=== PATIENT | female | born 1995 | race Two or more races ===

== ENCOUNTER 2017-07-28 18:02 | Emergency (ER) | payer OTHER ==
[2017-07-28 18:20] VITALS: BP 116/63
--- NOTE | 2017-07-28 18:38 | ER Document Report ---
ED Medical Screen (RME) - General Chief Complaint: Vaginal Pain Stated Complaint: NAUSEA,VAGINAL PAIN, DISCOMFORT Time Seen by Provider: 07/28/17 18:31 Notes: This 21-year-old female patient complains of pelvic pain for the past few weeks. Last menstrual period was 2 weeks ago normal and on time. She does not describe any particular discharge. I have greeted and performed a rapid initial assessment of this patient. A comprehensive ED assessment and evaluation of the patient, analysis of test results and completion of the medical decision making process will be conducted by additional ED providers. TRAVEL OUTSIDE OF THE [place] IN LAST 30 DAYS: No - Related Data Allergies/Adverse Reactions: No Known Allergies Allergy (Unverified 07/28/17 18:28) Past Medical History - Social History Chew tobacco use (# tins/day): No Frequency of alcohol use: None Drug Abuse: None Renal/ Medical History: Denies: Hx Peritoneal Dialysis Physical Exam - Vital signs Vitals: Temp Pulse Resp BP Pulse Ox 98.3 F 86 18 116/63 99 07/28/17 18:18 07/28/17 18:18 07/28/17 18:18 07/28/17 18:18 07/28/17 18:18 Course - Vital Signs Vital signs: Temp Pulse Resp BP Pulse Ox 98.0 F 80 26 H 116/63 100 07/28/17 18:29 07/28/17 18:29 07/28/17 18:29 07/28/17 18:18 07/28/17 18:29
--- NOTE | 2017-07-28 19:02 | ER Document Report ---
HPI - HPI Patient complains to provider of: uti symptoms Onset: Other - 3 wks Onset/Duration: Persistent Quality of pain: Achy Pain Level: 3 Context: Patient presents complaining of dysuria for the past 3 weeks. Patient also reports pain with intercourse. Patient denies any vaginal bleeding or discharge. Associated Symptoms: Other - Dysuria, dyspareunia. denies: Fever Exacerbated by: Denies Relieved by: Denies Similar symptoms previously: No Recently seen / treated by doctor: No - ROS ROS below otherwise negative: Yes Systems Reviewed and Negative: Yes All other systems reviewed and negative - CONSTITUTIONAL Constitutional: DENIES: Fever - URINARY Urinary: REPORTS: Dysuria - MUSCULOSKELETAL Musculoskeletal: DENIES: Back Pain - DERM Skin Color: Normal Skin Problems: None Past Medical History - General Information source: Patient - Social History Smoking Status: Current Some Day Smoker Chew tobacco use (# tins/day): No Smoking Education Provided: Yes Frequency of alcohol use: None Drug Abuse: None Occupation: Active duty Family History: Reviewed & Not Pertinent Patient has suicidal ideation: No Patient has homicidal ideation: No - Medical History Medical History: Negative Renal/ Medical History: Denies: Hx Peritoneal Dialysis Surgical Hx: Negative Vertical Provider Document - CONSTITUTIONAL Agree With Documented VS: Yes Exam Limitations: No Limitations General Appearance: WD/WN, No Apparent Distress - INFECTION CONTROL TRAVEL OUTSIDE OF THE [place] IN LAST 30 DAYS: No - HEENT HEENT: Atraumatic, Normocephalic - NECK Neck: Normal Inspection, Supple - RESPIRATORY Respiratory: Breath Sounds Normal, No Respiratory Distress - CARDIOVASCULAR Cardiovascular: Regular Rate, Regular Rhythm - GI/ABDOMEN Gastrointestinal: Abdomen Soft, Abdomen Non-Tender, No Organomegaly - REPRODUCTIVE Female Genitalia: CMT. negative: Adnexal Pain-Right, Adnexal Pain-Left - BACK Back: Normal Inspection. negative: CVA Tenderness-Right, CVA Tenderness-Left - MUSCULOSKELETAL/EXTREMETIES Musculoskeletal/Extremeties: MAEW - NEURO Level of Consciousness: Awake, Alert, Appropriate Motor/Sensory: No Motor Deficit - DERM Integumentary: Warm, Dry, No Rash Course - Vital Signs Vital signs: Temp Pulse Resp BP Pulse Ox 98.0 F 80 26 H 116/63 100 07/28/17 18:29 07/28/17 18:29 07/28/17 18:29 07/28/17 18:18 07/28/17 18:29 Discharge - Discharge Clinical Impression: Vaginal candidiasis, PID (acute pelvic inflammatory disease) UTI (urinary tract infection) Qualifiers: Urinary tract infection type: site unspecified Hematuria presence: without hematuria Qualified Code(s): N39.0 - Urinary tract infection, site not specified Constipation Qualifiers: Constipation type: unspecified constipation type Qualified Code(s): K59.00 - Constipation, unspecified Condition: Stable Disposition: HOME, SELF-CARE Instructions: Doxycycline ([facility]), Pelvic Inflammatory Disease ([facility]), Rocephin ( [facility]), Urinary Tract Infection ([facility]), Vaginal Yeast Infection ([facility]) Additional Instructions: Return immediately for any new or worsening symptoms Followup with your primary care provider, call tomorrow to make a followup appointment Urine culture is pending, we will call if you need any different treatment Prescriptions: Doxycycline Hyclate 100 mg PO BID #20 capsule Phenazopyridine HCl [Pyridium 200 mg Tablet] 200 mg PO TID #15 tablet Polyethylene Glycol 3350 [Miralax] 17 gm PO DAILY PRN #119 powder PRN Reason: Forms: Smoking Cessation Education Referrals: [facility] [Provider Group] - Follow up as needed
[2017-07-28 19:10] LABS: APPEARANCE,URINE CLOUDY; BILIRUBIN,URINE NEGATIVE (NEGATIVE); COLOR,URINE YELLOW; GLUCOSE, URINE NEGATIVE (NEGATIVE); KETONES,URINE NEGATIVE (NEGATIVE); LEUKOCYTE ESTERASE,URINE LARGE (NEGATIVE); NITRITE,URINE NEGATIVE (NEGATIVE); PROTEIN,URINE 30 mg/dL (NEGATIVE); URINE SPECIFIC GRAVITY 1.023; UROBILINOGEN,URINE NEGATIVE mg/dL (<2.0)
[2017-07-28] MEDS ORDERED: CEFTRIAXONE INJ 1000 MG VIAL IM ONE (19:16)
[2017-07-28] MEDS ORDERED: LIDOCAINE 1% INJ-PF (10 MG/ML) 30 ML SDV INJ ONE (19:17)
[2017-07-28] MEDS ORDERED: DOXYCYCLINE HYCLATE 100 MG TABLET PO ONE (19:17)
[2017-07-28 19:29] LABS: BACTERIA (WET MOUNT) 3+ BACTERIA SEEN; T.VAGINALIS (WET MOUNT) NO TRICHOMONAS SEEN; WBCS (WET MOUNT) 1+ WBCS SEEN; YEAST (WET MOUNT) YEAST SEEN
[2017-07-28] MEDS ORDERED: FLUCONAZOLE 100 MG TABLET PO ONE (19:32)
[2017-07-28 20:29] LABS: CHLAM PCR DETECTED (NOT DETECT); GON PCR NOT DETECTED (NOT DETECT)
== END 2017-07-28 20:00 | disposition home or self-care (01) ==
LOC: ER 18:02
DX: N39.0 Urinary tract infection, site not specified (principal); B37.3 Candidiasis of vulva and vagina; N73.9 Female pelvic inflammatory disease, unspecified; K59.00 Constipation, unspecified; F17.200 Nicotine dependence, unspecified, uncomplicated
CPT/HCPCS: 99283; 96372; 87086; 87210; 81025; 87088; 81001; 87186; 87491; 87591; J3490; J0696

== ENCOUNTER 2019-05-04 12:13 | Emergency (ER) | payer OTHER ==
--- NOTE | 2019-05-04 12:33 | ER Document Report ---
ED Medical Screen (RME) - General Chief Complaint: Urinary Problem Stated Complaint: URINARY PROBLEM Time Seen by Provider: 05/04/19 12:28 Mode of Arrival: Ambulatory Information source: Patient Notes: Otherwise healthy 23-year-old female presenting to the emergency department chief complaint of dysuria, pelvic pain and whitish-yellow abnormal discharge. Patient reports recently treated for bacterial vaginosis, had swabs taken during her Pap smear. Patient reports she thinks she may have a yeast infection. Exam: Patient alert, oriented, answering all questions, no acute distress noted. Exam deferred until patient is in room I have greeted and performed a rapid initial assessment of this patient. A comprehensive ED assessment and evaluation of the patient, analysis of test results and completion of the medical decision making process will be conducted by additional ED providers. I have specifically instructed the patient or family members with the patient to immediately return to any nursing staff should anything change in the patient's condition or with their chief complaint. TRAVEL OUTSIDE OF THE [place] IN LAST 30 DAYS: No - Related Data Allergies/Adverse Reactions: No Known Allergies Allergy (Unverified 07/28/17 18:28) Home Medications: denies Past Medical History - Social History Chew tobacco use (# tins/day): No Frequency of alcohol use: Occasional Drug Abuse: None Renal/ Medical History: Denies: Hx Peritoneal Dialysis Physical Exam - Vital signs Vitals: Temp Pulse Resp BP Pulse Ox 97.7 F 61 16 116/66 100 05/04/19 12:22 05/04/19 12:22 05/04/19 12:22 05/04/19 12:22 05/04/19 12:22 Course - Vital Signs Vital signs: Temp Pulse Resp BP Pulse Ox 97.7 F 61 16 116/66 100 05/04/19 12:22 05/04/19 12:22 05/04/19 12:22 05/04/19 12:22 05/04/19 12:22
[2019-05-04 13:08] LABS: APPEARANCE,URINE SLIGHTLY-CLOUDY; BILIRUBIN,URINE NEGATIVE (NEGATIVE); COLOR,URINE YELLOW; GLUCOSE, URINE NEGATIVE (NEGATIVE); KETONES,URINE NEGATIVE (NEGATIVE); PROTEIN,URINE NEGATIVE (NEGATIVE); URINE SPECIFIC GRAVITY 1.014; UROBILINOGEN,URINE NEGATIVE mg/dL (<2.0)
[2019-05-04 13:14] LABS: BACTERIA (WET MOUNT) 4+ BACTERIA SEEN; EPITHELIALS (WET MOUNT) 4+ EPITHELIALS SEEN; RBCS (WET MOUNT) 1+ RBCS SEEN; T.VAGINALIS (WET MOUNT) NO TRICHOMONAS SEEN; WBCS (WET MOUNT) 4+ WBCS SEEN; YEAST (WET MOUNT) NO YEAST SEEN
--- NOTE | 2019-05-04 13:16 | ER Document Report ---
ED GI/ - General Chief Complaint: Urinary Problem Stated Complaint: URINARY PROBLEM Time Seen by Provider: 05/04/19 12:28 Mode of Arrival: Ambulatory Notes: Patient is a 23-year-old female who presents emergency department with a chief complaint of vaginal discharge. Patient reports on Monday she started to develop burning with urination. Patient denies pelvic pain or abdominal pain. Patient reports she has had a white to yellow vaginal discharge. Patient denies vaginal bleeding. Patient reports back in February she had a Pap smear and was treated for bacterial vaginosis. Patient reports that she did take Flagyl for 5 days but did not finish her full course. Patient reports her last menstrual cycle was April 02. Patient reports that she is taking Azo for her symptoms which did seem to help. 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 Patient reports while out in the field they were doing water exercises where she is soaked for long periods of time and does sweat a lot. Patient concern for possible yeast infection as well. Patient denies vaginal itching. Patient states that her is currently being seen for similar symptoms. Patient states there is no concern for sexually transmitted diseases. TRAVEL OUTSIDE OF THE [place] IN LAST 30 DAYS: No - Related Data Allergies/Adverse Reactions: No Known Allergies Allergy (Unverified 07/28/17 18:28) Home Medications: denies Past Medical History - General Information source: Patient Last Menstrual Period: 04/23/19 - Social History Smoking Status: Never Smoker Chew tobacco use (# tins/day): No Frequency of alcohol use: Occasional Drug Abuse: None Lives with: Spouse/Significant other Family History: Reviewed & Not Pertinent Patient has suicidal ideation: No Patient has homicidal ideation: No - Past Medical History Cardiac Medical History: Reports: None Pulmonary Medical History: Reports: None EENT Medical History: Reports: None Neurological Medical History: Reports: None Endocrine Medical History: Reports: None Renal/ Medical History: Reports: None. Denies: Hx Peritoneal Dialysis Malignancy Medical History: Reports: None GI Medical History: Reports: None Musculoskeletal Medical History: Reports None Skin Medical History: Reports None Psychiatric Medical History: Reports: None Traumatic Medical History: Reports: None Infectious Medical History: Reports: None Surgical Hx: Negative Review of Systems - Review of Systems Constitutional: No symptoms reported EENT: No symptoms reported Cardiovascular: No symptoms reported Respiratory: No symptoms reported Gastrointestinal: No symptoms reported Genitourinary: See HPI Female Genitourinary: See HPI Musculoskeletal: No symptoms reported Skin: No symptoms reported Hematologic/Lymphatic: No symptoms reported Neurological/Psychological: No symptoms reported Physical Exam - Vital signs Vitals: Temp Pulse Resp BP Pulse Ox 97.7 F 61 16 116/66 100 05/04/19 12:22 05/04/19 12:22 05/04/19 12:22 05/04/19 12:22 05/04/19 12:22 Interpretation: Normal - Notes Notes: GENERAL: Well-appearing, well-nourished and in no acute distress. HEAD: Atraumatic, normocephalic. EYES: Pupils equal round and reactive to light, extraocular movements intact, sclera anicteric, conjunctiva are normal. ENT: Nares patent, oropharynx clear without exudates. Moist mucous membranes. NECK: Normal range of motion, supple without lymphadenopathy or JVD. LUNGS: Breath sounds clear to auscultation bilaterally and equal. No wheezes rales or rhonchi. HEART: Regular rate and rhythm without murmurs, rubs or gallops. ABDOMEN: Soft, nontender, normoactive bowel sounds. No suprapubic pain. No guarding, no rebound. No masses appreciated. BACK: No cervical, thoracic, lumbar midline tenderness. No saddle anesthesia, normal distal neurovascular exam. NO CVA tenderness. GENITOURINARY: Deferred. EXTREMITIES: Normal range of motion, no pitting or edema. No clubbing or cyanosis. NEUROLOGICAL: Cranial nerves II through XII grossly intact. Normal speech, normal gait. PSYCH: Normal mood, normal affect. SKIN: Warm, Dry, normal turgor, no rashes or lesions noted. Course - Re-evaluation Re-evalutation: 05/04/19 13:15 Patient vital signs do not show significant tachycardia, hypotension or fever. Pelvic examination was performed and specimens pending. 05/04/19 13:56 Did discuss results of the pelvic examination with the patient. She has been diagnosed with bacterial vaginosis as well as a urinary tract infection. We will place the patient on Keflex. We will give first dose here in the emergency department. Urine culture has been sent. - Vital Signs Vital signs: Temp Pulse Resp BP Pulse Ox 97.7 F 61 16 116/66 100 05/04/19 12:22 05/04/19 12:22 05/04/19 12:22 05/04/19 12:22 05/04/19 12:22 - Laboratory Laboratory results interpreted by me: 05/04/19 12:34 Urine Blood MODERATE H Leukocyte Esterase Rfl LARGE H Patient does have a large amount of leukocytes in the urine and 135 WBCs. Negative hCG. Patient's pelvic specimens did show bacterial vaginosis. Laboratory 05/04/19 05/04/19 05/04/19 12:34 12:34 13:05 Urine Color YELLOW Urine Appearance SLIGHTLY-CLOUDY Urine pH 5.0 Ur Specific [place] 1.014 Urine Protein NEGATIVE Urine Glucose (UA) NEGATIVE Urine Ketones NEGATIVE Urine Blood MODERATE H Urine Nitrite (Reflex) NEGATIVE Urine Bilirubin NEGATIVE Urine Urobilinogen NEGATIVE Leukocyte Esterase Rfl LARGE H Urine RBC (Auto) 20 Urine Bacteria (Auto) TRACE Urine WBC (Reflex) 135 Squamous Epi Cells Auto 5 Urine Mucus (Auto) RARE Urine Ascorbic Acid NEGATIVE Urine HCG, Qual NEGATIVE Epi Cells (Wet Prep) 4+ EPITHELIALS SEEN Bacteria (Wet Prep) 4+ BACTERIA SEEN Trichomonas (Wet Prep) NO TRICHOMONAS SEEN Vaginal WBC 4+ WBCS SEEN Vaginal RBC 1+ RBCS SEEN Vaginal Yeast NO YEAST SEEN Procedures - Pelvic Exam Pelvic exam Time completed: 13:00 Cultures obtained: Yes Wet prep obtained: Yes Witnessed by: Eda PINTO Notes: 05/04/19 13:16 External genitalia was unremarkable without edema, erythema or lesions. No discharge noted externally. Patient tolerated the insertion of the speculum fairly well with minimal discomfort. I was able to visualize the cervix. There was a large amount of thick white discharge within the vaginal vault and around the cervix. There is also a large amount of white liquid discharge. No blood noted. Discharge - Discharge Clinical Impression: Bacterial vaginosis Urinary tract infection Qualifiers: Urinary tract infection type: acute cystitis Hematuria presence: with hematuria Qualified Code(s): N30.01 - Acute cystitis with hematuria Condition: Stable Disposition: HOME, SELF-CARE Instructions: Cephalexin ([facility]), Urinary Anesthetic Agent ([facility]), Urinary Tract Infection ([facility]), Urinary Tract Infection, Child ([facility]) Additional Instructions: *Today was seen in the emergency department for pain with urination and vaginal discharge. You are being diagnosed with bacterial vaginosis which we do use Flagyl to treat. Flagyl is an antibiotic in which you should take twice a day for 1 week. You are also being diagnosed with a urinary tract infection. Please make sure you are continuing to drink plenty of fluids and take both of your antibiotics as prescribed. The antibiotic we are using to treat your infection in the urine is Keflex. Please make sure that [place] Please return emergency department if you develop fever, inabi lity to urinate, flank pain, chills or ganesh blood in the urine. Vaginosis, Bacterial Your exam shows you have bacterial vaginosis. This condition is due to an overgrowth of bacteria in the vagina. Symptoms may include vaginal itching or pain, a smelly discharge, and sometimes burning with urination. Normally this is not transmitted by sexual contact. Vaginosis can be treated with oral or topical antibiotics. Metronidazole (Flagyl) pills are usually effective. Topical vaginal creams include Cleocin and Metro-Gel. You should avoid sexual contact until your symptoms are all better. Call the doctor if you develop pelvic pain, fever, or problems with urination, or if you don't improve as expected. URINARY TRACT INFECTION: Your evaluation indicates that you have a urinary tract infection. This is due to germs growing in the bladder. This is a common problem. This infection usually responds quickly to antibiotics. Your antibiotic sh ould be taken exactly as prescribed. Drink plenty of fluids -- three to four quarts a day. Occasionally, a bladder anesthetic will be prescribed to help stop the feeling of urgency until the antibiotic has a chance to clear the infection. This may cause your urine to be dark orange. Certain urine infections require a culture. If the doctor obtained a culture, the results will be back in two days. You should call to see if a change in treatment is needed. A repeat urinalysis after you finish treatment is often recommended. The physician will let you know if further testing is required. Call the doctor if you develop fever, chills, flank pain, inability to urinate, or blood in the urine. ANTIBIOTIC THERAPY: You have been given an antibiotic prescription. It's important that you take all the medication, unless instructed otherwise by your physician. Failure to complete the entire course can result in relapse of your condition. Common side effects of antibiotics include nausea, intestinal cramping, or diarrhea. Women may develop vaginal yeast infections, and babies can get yeast (thrush) in the mouth following the use of antibiotics. Contact your physician if you develop significant side effects from this medication. Allergy to this antibiotic can result in hives, wheezing, faintness, or itching. If symptoms of allergy occur, stop the medication and call the doctor. CEPHALEXIN: The antibiotic you've been prescribed is a member of the cephalosporin class. This type of antibiotic covers a wide variety of infections, including those of the skin, lungs, and urinary tract. It's useful for staph infections. This antibiotic is slightly similar to the penicillin family. In rare cases, a person who is allergic to penicillin will also be allergic to this medication. If you have had a severe allergic reaction to penicillin, and have not taken this antibiotic since that time, notify your doctor. Antibiotics which cover many germs ("broad spectrum" antibiotics) are more likely to cause diarrhea or "yeast" infections. Women prone to vaginal yeast problems may suffer an attack after taking this antibiotic. In infants, oral thrush (white spots "stuck" on the cheek) or yeast diaper rash may result. See your doctor if these problems occur. Call at once if you develop itching, hives, shortness of breath, or lightheadedness. URINARY ANESTHETIC AGENT: You have been given a medication (Pyridium) for urinary tract discomfort. This medicine numbs the lining of the bladder and urethra, resulting in less tammy n, burning, and urgency. You may take it as needed, according to instructions. When the symptoms resolve, you can stop this medication (be sure to continue any other medications the doctor has given you). This medicine turns the urine a dark orange. It may stain underwear. Occasionally, it can cause nausea. Return for evaluation if there are any unexpected effects, such as itching, hives, or shortness of breath. FOLLOW-UP CARE: If you have been referred to a physician for follow-up care, call the physicians office for an appointment as you were instructed or within the next two days. If you experience worsening or a significant change in your symptoms, notify the physician immediately or return to the Emergency Department at any time for re-evaluation. Prescriptions: Metronidazole [Flagyl 500 mg Tablet] 500 mg PO BID 7 Days #14 tablet Cephalexin Monohydrate [Keflex 500 mg Capsule] 500 mg PO BID 7 Days #14 capsule Phenazopyridine HCl [Pyridium 100 Mg Tablet] 100 mg PO TID 2 Days #6 tablet
[2019-05-04] MEDS ORDERED: CEPHALEXIN 500 MG CAPSULE PO ONE (13:42)
[2019-05-04 14:42] LABS: CHLAM PCR NOT DETECTED (NOT DETECT)
== END 2019-05-04 14:02 | disposition home or self-care (01) ==
LOC: ER 12:13
DX: N76.0 Acute vaginitis (principal); B96.89 Other specified bacterial agents as the cause of diseases classified elsewhere; N30.01 Acute cystitis with hematuria; R39.198 Other difficulties with micturition; R30.9 Painful micturition, unspecified
CPT/HCPCS: 81001; 81025; 87086; 87210; 87491; 87591; 99283

== ENCOUNTER 2019-07-25 20:17 | Emergency (ER) | payer OTHER ==
--- NOTE | 2019-07-25 21:01 | ER Document Report ---
ED Medical Screen (RME) - General Stated Complaint: ABDOMINAL PAIN Time Seen by Provider: 07/25/19 20:52 Mode of Arrival: Ambulatory Information source: Patient Notes: 23-year-old female history of BV presents to the emergency department with reports of possible repeat of BV. She reports vaginal discharge vaginal irritation some vaginal odor. Denies pain with void. Denies possible STD. She is sexually active no protection but reports she is . Also complains of vaginal bulge. Denies fever vomiting diarrhea. I have greeted and performed a rapid initial assessment of this patient. A comprehensive ED assessment and evaluation of the patient, analysis of test results and completion of the medical decision making process will be conducted by additional ED providers. TRAVEL OUTSIDE OF THE [place] IN LAST 30 DAYS: No - Related Data Allergies/Adverse Reactions: No Known Allergies Allergy (Unverified 07/28/17 18:28) Past Medical History Renal/ Medical History: Denies: Hx Peritoneal Dialysis Physical Exam - Vital signs Vitals: Temp Pulse Resp BP Pulse Ox 98.1 F 58 L 16 112/57 L 99 07/25/19 20:22 07/25/19 20:22 07/25/19 20:22 07/25/19 20:22 07/25/19 20:22 Course - Vital Signs Vital signs: Temp Pulse Resp BP Pulse Ox 98.1 F 58 L 16 112/57 L 99 07/25/19 20:22 07/25/19 20:22 07/25/19 20:22 07/25/19 20:22 07/25/19 20:22
[2019-07-25 22:30] LABS: APPEARANCE,URINE SLIGHTLY-CLOUDY; BILIRUBIN,URINE NEGATIVE (NEGATIVE); COLOR,URINE YELLOW; GLUCOSE, URINE NEGATIVE (NEGATIVE); KETONES,URINE NEGATIVE (NEGATIVE); LEUKOCYTE ESTERASE,URINE LARGE (NEGATIVE); NITRITE,URINE NEGATIVE (NEGATIVE); PROTEIN,URINE NEGATIVE (NEGATIVE); URINE SPECIFIC GRAVITY 1.018; UROBILINOGEN,URINE NEGATIVE mg/dL (<2.0)
--- NOTE | 2019-07-25 22:47 | ER Document Report ---
ED GI/ - General Chief Complaint: Pelvic Pain Stated Complaint: ABDOMINAL PAIN Time Seen by Provider: 07/25/19 20:52 Mode of Arrival: Ambulatory Information source: Patient Notes: 23-year-old female past medical history significant for recurrent BV and yeast presents to the emergency room complaining of vaginal discharge for the past 3 days. Also states she has had a lump in the vaginal area off and on for the past 2 weeks. She denies any vaginal bleeding. No change in sexual partners. Positive for chlamydia in 2018. TRAVEL OUTSIDE OF THE [place] IN LAST 30 DAYS: No - Related Data Allergies/Adverse Reactions: No Known Allergies Allergy (Unverified 07/28/17 18:28) Past Medical History - General Information source: Patient - Social History Smoking Status: Never Smoker Frequency of alcohol use: None Drug Abuse: None Lives with: Family Family History: Reviewed & Not Pertinent Patient has homicidal ideation: No - Medical History Medical History: Other - Bacterial vaginosis and yeast infections Renal/ Medical History: Denies: Hx Peritoneal Dialysis Review of Systems - Review of Systems Constitutional: No symptoms reported Cardiovascular: No symptoms reported Respiratory: No symptoms reported Gastrointestinal: No symptoms reported Genitourinary: denies: Dysuria Female Genitourinary: Vaginal discharge, Other - Lump in vaginal area. denies: , Vaginal bleeding Skin: No symptoms reported Neurological/Psychological: No symptoms reported -: Yes All other systems reviewed and negative Physical Exam - Vital signs Vitals: Temp Pulse Resp BP Pulse Ox 98.1 F 58 L 16 112/57 L 99 07/25/19 20:22 07/25/19 20:22 07/25/19 20:22 07/25/19 20:22 07/25/19 20:22 - General General appearance: Appears well, Alert In distress: Mild - HEENT Head: Normocephalic, Atraumatic Eyes: Normal Pupils: PERRL - Respiratory Respiratory status: No respiratory distress Chest status: Nontender Breath sounds: Normal Chest palpation: Normal - Cardiovascular Rhythm: Regular Heart sounds: Normal auscultation Murmur: No - Abdominal Inspection: Normal Distension: No distension Bowel sounds: Normal Tenderness: Nontender Organomegaly: No organomegaly - Genitourinary External exam: Normal. No: Lesions Speculum exam: Normal, Vaginal discharge - Moderate amount of cheesy discharge noted in the vaginal vault.. No: Cervix closed Bimanuel exam: Normal. No: Cervical motion tender, Adnexal tenderness Notes: Chaperoned by MICHAEL Castro, no vaginal lesions noted on exam. - Neurological Neuro grossly intact: Yes Cognition: Normal Orientation: AAOx4 [place] Coma Scale Eye Opening: Spontaneous [place] Coma Scale Verbal: Oriented [place] Coma Scale Motor: Obeys Commands [place] Coma Scale Total: 15 Speech: Normal Motor strength normal: LUE, RUE, LLE, RLE Sensory: Normal - Skin Skin Temperature: Warm Skin Moisture: Dry Skin Color: Normal Course - Re-evaluation Re-evalutation: 07/26/19 02:55 Patient is resting comfortably reviewed all test results with patient. She stable for discharge. Counseled to take medications as prescribed. She was given strict return to the emergency room guidelines. Outpatient follow-up with her organic preparation technician. Return for any new or worsening symptoms. All questions were answered. Patient verbalized understanding and agrees with plan of care. - Vital Signs Vital signs: Temp Pulse Resp BP Pulse Ox 97.5 F 48 L 16 111/50 L 100 07/26/19 02:39 07/26/19 02:39 07/26/19 02:39 07/26/19 02:39 07/26/19 02:39 - Laboratory Laboratory results interpreted by me: 07/25/19 22:05 Ur Leukocyte Esterase LARGE H Discharge - Discharge Clinical Impression: Malina infection Condition: Stable Disposition: HOME, SELF-CARE Instructions: [employer] Sales Representative Doctors, Vaginal Yeast Infection ([facility]) Additional Instructions: You were given your first dose of Diflucan in the emergency room. May repeat dose in 3 days if still symptomatic. Call your organic preparation technician for a follow-up appointment. Return for any new or worsening symptoms. Prescriptions: Fluconazole [Diflucan] 150 mg PO ONCE PRN 1 Days #1 tablet PRN Reason: Forms: Return to Work
[2019-07-25 23:57] LABS: CHLAM PCR NOT DETECTED (NOT DETECT)
[2019-07-26 02:40] LABS: BACTERIA (WET MOUNT) 4+ BACTERIA SEEN; EPITHELIALS (WET MOUNT) 4+ EPITHELIALS SEEN; RBCS (WET MOUNT) FEW RBCS SEEN; T.VAGINALIS (WET MOUNT) NO TRICHOMONAS SEEN; WBCS (WET MOUNT) 4+ WBCS SEEN; YEAST (WET MOUNT) YEAST SEEN
[2019-07-26 02:41] VITALS: BP 111/50
[2019-07-26] MEDS ORDERED: FLUCONAZOLE 100 MG TABLET PO ONE (02:56)
== END 2019-07-26 03:09 | disposition home or self-care (01) ==
LOC: ER 20:17
DX: B37.9 Candidiasis, unspecified (principal); N89.8 Other specified noninflammatory disorders of vagina
CPT/HCPCS: 81001; 81025; 87210; 87491; 87591; 99283